=== PATIENT | female | born 1985 | race Caucasian/White ===

== ENCOUNTER 2020-11-03 23:06 | Emergency (ER) | payer BC ==
[~2020-11-03] VITALS: Ht 177.8 cm; Wt 84.6 kg
--- NOTE | 2020-11-03 23:43 | PHYS DOC ---
General Adult EDM: Chief Complaint: BACK PAIN OR INJURY HPI: HPI: " The last time my back felt this bad.. I had herniated my disc and had to go to surgery... The shocks are running down both my legs.." " I Do a lot of heavy lifting.. [place]..." Patient is a 35 year old female who presents with above history and severe back pain. Patient also complaining of bilateral leg sciatica. Prior herniated disc and surgery at previous injury in 2019. Pt had discectomy with 07/2018. . Symptoms this time started approximately 2 days ago. Symptoms tonight had become much worse after doing stretching exercises. Patient has not had any problems with defecation or urination. Does not have any loss in sensation of gluteal or perineal area. Patient does have marked sciatica both legs with straight leg lift.( Is worse on the right.). No history of fever or chills. No history of cancer. No history of IV drug use. No history immunosuppression. No recent travel. No significant ill contacts. Has completed Covid vaccination Moderna -. Patient does have history of seasonal allergies, depression. Patient normally follows with Dr. Mikki Valladares. Review of Systems: Review of Systems: Constitutional: Denies fever or chills Eyes: Denies change in visual acuity HENT: Denies nasal congestion or sore throat Respiratory: Denies cough or shortness of breath Cardiovascular: Denies chest pain or edema GI: Denies abdominal pain, nausea, vomiting, bloody stools or diarrhea : Denies dysuria Musculoskeletal: Complaints of severe back pain and exacerbation of sciatica Integument: Denies rash Neurologic: Denies headache, focal weakness or sensory changes Endocrine: Denies polyuria or polydipsia Lymphatic: Denies swollen glands Psychiatric: Denies depression or anxiety Family History: Family History: Noncontributory to presentation Current Medications: Current Meds: See nursing for home meds Allergies: Allergies: No known drug allergies Physical Exam: PE: Constitutional: Well developed, well nourished, in moderately acute distress, non-toxic appearance. [] HENT: Normocephalic, atraumatic, bilateral external ears normal, oropharynx moist, no oral exudates, nose normal. [] Eyes: PERRLA, EOMI, conjunctiva normal, no discharge. [] Neck: Normal range of motion, no tenderness, supple, no stridor. [] Cardiovascular:Heart rate regular rhythm, no murmur [] Lungs & Thorax: Bilateral breath sounds equal at apex on auscultation [] Abdomen: Bowel sounds normal, soft, no tenderness, no masses, no pulsatile masses. Reports no saddle loss of Sensation Skin: Warm, dry, no erythema, no rash. [] Back: Lumbar sacral tenderness, obvious muscle spasm, midline lumbar sacral surgery scar, no upper CVA tenderness. [] Has pain along both sciatic nerve roots. This is exacerbated by straight leg lift evaluation. Very guarded in any movement. Guarded gait Extremities: No tenderness, no cyanosis, no clubbing, ROM intact, no edema. No cording noted Neurologic: Alert and oriented X 3, guarded motor function, has distal sensory function, no focal deficits noted. DTRs +2 patella Psychologic: Affect anxious, judgement normal, mood normal. [] EKG: EKG: [] Radiology/Procedures: Radiology/Procedures: [][address] [address] IMAGING REPORT Signed PATIENT: FRANK BOONE ACCOUNT: [id number] : 1985 LOCATION: ER AGE: 35 SEX: F EXAM STATUS: REG ER ORD. PHYSICIAN: CARLITO VELASQUEZ MD REASON: LOW BACK PAIN PROCEDURE: CT LUMBAR SPINE WO CONTRAST STUDY: 1. CT lumbar spine without contrast 2. CT pelvis without contrast INDICATION: Low back and sacrum/coccyx pain. COMPARISON: None. TECHNIQUE: Axial CT imaging of the lumbar spine and pelvis performed without the use of intravenous contrast. Coronal and sagittal reformats were obtained. One or more of the following individualized dose reduction techniques were utilized for this examination: 1. Automated exposure control 2. Adjustment of the mA and/or kV according to patient size 3. Use of iterative reconstruction technique. FINDINGS: LUMBAR SPINE: No acute fracture. Millimetric retrolisthesis of L5 on S1. Moderate discogenic arthrosis at L5-S1 with disc space narrowing, endplate sclerosis and cystic change in addition to vacuum phenomenon. Disc space height is maintained elsewhere. Mild early facet arthrosis at L5-S1. No evidence for significant central canal stenosis. Estimated moderate left and mild/moderate right neural foraminal stenosis mainly secondary to endplate osteophytic ridging. There appears to be a left eccentric disc bulge at L5-S1 which could contribute to narrowing but is not fully evaluated by technique. PELVIS: Limited [id number] centered on the sacrum/coccyx. No sacrum or coccygeal fracture. Alignment at the sacrococcygeal junction is within normal limits. Mild sacroiliac joint arthrosis. No discrete erosion on either side. Completely assessed pelvic contents to include the uterus and ovaries. IMPRESSION: LUMBAR SPINE: 1. Moderate but age-accelerated discogenic arthrosis at L5-S1. Millimetric L5 on S1 retrolisthesis. Mild early facet arthrosis at this level. Estimated moderate left and mild/moderate right neural foraminal stenosis. If there is further concern nonemergent/outpatient MRI would better characterize. PELVIS: 1. Intact sacrum and coccyx. Mild bilateral sacroiliac joint arthrosis. No discrete erosion noting that MRI would be more sensitive to active sacroiliitis. Electronically signed by: AMIRA CREWS MD (11/04/2020 1:46 AM) [facility] DICTATED AND SIGNED BY: AMIRA CREWS MD DATE: 11/04/20 0139 CC: CARLITO VELASQUEZ MD; MIKKI VALLADARES MD ~MTH0 0 Heart Score: C/O Chest Pain: N/A Risk Factors: Risk Factors: DM, Current or recent (<one month) smoker, HTN, HLP, family history of CAD, obesity. Risk Scores: Score 0 - 3: 2.5% MACE over next 6 weeks - Discharge Home Score 4 - 6: 20.3% MACE over next 6 weeks - Admit for Clinical Observation Score 7 - 10: 72.7% MACE over next 6 weeks - Early Invasive Strategies Course & Med Decision Making: Course & Med Decision Making Pertinent Labs and Imaging studies reviewed. (See chart for details) Reviewed CT findings with the patient. Recommend patient follow-up with her neurosurgeon. If further exacerbation of her pain or neuro symptoms will need to present to the emergency department with MRI capabilities to characterize more fully her accelerated back pain and sciatic issues. Advised patient suspect she will most likely have to have a MRI to fully evaluate the foraminal stenosis and central canal stenosis.. Take Tylenol and ibuprofen for pain. May take Flexeril 10 mg up to 3 times a day for muscle spasms. For marked pain may take Vicoprofen up to 4 times a day. Use ice packs. Follow-up with primary care Dr. Valladares. Ideally a follow-up of her prior neurosurgeon would be the most efficient, especially in comparison of films with current CT tonight. Her neuro surgeon can then order MRI as to his specifications, if he suspects she may need another neurosurgery. The patient was given a disc of CT evaluation tonight to take with her on follow-up to neurosurgery. Patient to continue passive range of motion. No ballistic activity. No lifting more than 20 pounds. Must follow-up Impression: 1. Acute exacerbation back pain and sciatica complaints 2. History of prior discectomy 2018 3. Degenerative joint changes-lumbosacral 4. Moderate bilateral Neural Foraminal Stenosis-L5/S1 [] Dragon Disclaimer: Dragon Disclaimer: This electronic medical record was generated, in whole or in part, using a voice recognition dictation system. Departure Departure: Referrals: MIKKI VALLADARES MD (PCP) Scripts Cyclobenzaprine Hcl (CYCLOBENZAPRINE HCL) 10 Mg Tablet 10 MG PO tidprn for muscle spasm, #30 TAB Prov: CARLITO VELASQUEZ MD 11/04/20 Hydrocodone/Ibuprofen (HYDROCODONE-IBUPROFEN 7.5-200 ) 1 Each Tablet 1 TAB PO PRN Q6HRS PRN for PAIN, #30 TAB 0 Refills Prov: CARLITO VELASQUEZ MD 11/04/20 Dragon Disclaimer This chart was dictated in whole or in part using Voice Recognition software in a busy, high-work load, and often noisy Emergency Department environment. It may contain unintended and wholly unrecognized errors or omissions. CARLITO VELASQUEZ MD Nov 03, 2020 23:43
[2020-11-04] MEDS ORDERED: KETOROLAC 30 MG/ML VIAL. IVP ONE (00:15)
[2020-11-04] MEDS ORDERED: ORPHENADRINE CITRATE 60 MG/2 ML VIAL. IV ONE (00:15)
[2020-11-04] MEDS ORDERED: DEXAMETHASONE SOD PHOS 10 MG/ML VIAL. IV ONE (00:15)
[2020-11-04] MEDS ORDERED: DEXAMETHASONE SOD PHOS 10 MG/ML VIAL. IM ONE ×2 (00:15→02:30)
[2020-11-04] MEDS ORDERED: ORPHENADRINE CITRATE 60 MG/2 ML VIAL. IM ONE ×2 (00:15→02:30)
[2020-11-04] MEDS ORDERED: KETOROLAC 60 MG/2 ML VIAL. IM ONE ×3 (00:15→02:30)
[2020-11-04 00:48] LABS: BARBITURATES NEG (NEG); BENZODIAZEPINES NEG (NEG); CANNABINOIDS NEG (NEG); COCAINE NEG (NEG); METHADONE NEG (NEG); OPIATES NEG (NEG); PHENCYCLIDINE NEG (NEG)
[2020-11-04 00:59] LABS: AMPHETAMINE/METHAMPHETAMINE NEG (NEG)
[2020-11-04 01:10] LABS: BILIRUBIN,URINE NEG (NEG); CLARITY,URINE HAZY; COLOR,URINE STRAW; GLUCOSE,URINE NEG (NEG)
[2020-11-04 01:11] LABS: BACTERIA,URINE FEW /HPF (0-FEW); NITRITE,URINE NEG (NEG); SQUAMOUS EPITHELIAL CELL,UR MOD /LPF; UROBILINOGEN,URINE 0.2 mg/dL (0.2 mg/dL); WBC,URINE 0 /HPF (0-4)
--- NOTE | 2020-11-04 01:49 | RAD ---
STUDY: 1. CT lumbar spine without contrast 2. CT pelvis without contrast INDICATION: Low back and sacrum/coccyx pain. COMPARISON: None. TECHNIQUE: Axial CT imaging of the lumbar spine and pelvis performed without the use of intravenous c ontrast. Coronal and sagittal reformats were obtained. One or more of the following individualized dose reduction techniques were utilized for this examinat ion: 1. Automated exposure control 2. Adjustment of the mA and/or kV according to patient size 3. Use of iterative reconstruction technique. FINDINGS: LUMBAR SPINE: No acute fracture. Millimetric retrolisthesis of L5 on S1. Moderate discogenic arthrosis at L5-S1 wit h disc space narrowing, endplate sclerosis and cystic change in addition to vacuum phenomenon. Disc s pace height is maintained elsewhere. Mild early facet arthrosis at L5-S1. No evidence for significant central canal stenosis. Estimated moderate left and mild/moderate right neural foraminal stenosis ma inly secondary to endplate osteophytic ridging. There appears to be a left eccentric disc bulge at L5 -S1 which could contribute to narrowing but is not fully evaluated by technique. PELVIS: Limited [id number] centered on the sacrum/coccyx. No sacrum or coccygeal fracture. Alignment at the sacrococcygeal junction is within normal limits. Mi ld sacroiliac joint arthrosis. No discrete erosion on either side. Completely assessed pelvic content s to include the uterus and ovaries. IMPRESSION: LUMBAR SPINE: 1. Moderate but age-accelerated discogenic arthrosis at L5-S1. Millimetric L5 on S1 retrolisthesis. Mild early facet arthrosis at this level. Estimated moderate left and mild/moderate right neural fora jesus stenosis. If there is further concern nonemergent/outpatient MRI would better characterize. PELVIS: 1. Intact sacrum and coccyx. Mild bilateral sacroiliac joint arthrosis. No discrete erosion noting t hat MRI would be more sensitive to active sacroiliitis. Electronically signed by: AMIRA CREWS MD (11/04/2020 1:46 AM) [facility]
[2020-11-04] MEDS ORDERED: CYCL-331 PO (02:13)
[2020-11-04] MEDS ORDERED: HYDR-1179 PO (02:13)
[2020-11-04 02:15] VITALS: BP 128/78
[2020-11-04] MEDS ORDERED: MORPHINE SULFATE 10 MG/ML SYRINGE. SQ ONE (02:15)
== END 2020-11-04 02:32 | disposition home health service (06) ==
LOC: ER 23:06
DX: M48.07 Spinal stenosis, lumbosacral region (principal); M54.42 Lumbago with sciatica, left side; M54.41 Lumbago with sciatica, right side; X50.0XXA Overexertion from strenuous movement or load, initial encounter; Y93.89 Activity, other specified; Y92.89 Other specified places as the place of occurrence of the external cause; Y99.8 Other external cause status
CPT/HCPCS: 36415; 72131; 72192; 80307; 81001; 81025; 96372; 99285; J1100; J1885; J2270; J2360